=== PATIENT | male | born 1965 | race Caucasian/White ===

== ENCOUNTER → 2020-05-21 14:46 | Outpatient (CLI) | payer OTHER, SELFPAY ==
--- NOTE | ~2020-05-21 | XR_ITS ---
EXAMINATION: XR knee LT 3V DATE: 05/21/2020 15:22 INDICATION: Unilateral primary osteoarthritis, left knee. TECHNIQUE: 4 views of left knee were obtained. COMPARISON: Ultrasound 05/05/2013 FINDINGS: Bone alignment is normal. No fracture. There is severe osteoarthritis of medial compartment and moderate osteoarthritis of lateral and patellofemoral compartments. There is a small knee joint effusion. There is a 7.7 cm calcified mass posterior to the knee. IMPRESSION: 1. Severe left knee osteoarthritis. 2. Small left knee joint effusion. 3. 7.7 cm calcified mass posterior to the knee, which may be a loose body in a Villalpando's cyst. Reviewed, dictated and finalized at location A.
--- NOTE | ~2020-05-21 | XR_ITS ---
EXAMINATION: HAND-RAMONA ARTHRITIS 3+VIEWS DATE: 05/21/2020 15:23 INDICATION: Unspecified osteoarthritis at the bilateral hands with pain at the bilateral first metaca rpals. TECHNIQUE: Posteroanterior, lateral, and oblique views of the left and of the right hands as well as a ballcatchers view of both hands were obtained. COMPARISON: None. FINDINGS: Alignment is normal at both hands. Likely chronic tiny avulsion fracture fragment at the plantar/radi al base of the right third proximal phalanx. No acute fracture. Polyarticular osteoarthritis of both hands, severe at the left first metacarpal metacarpal joint, moderate severity at the right first car pometacarpal joint and mild at multiple bilateral metacarpophalangeal and interphalangeal joints. IMPRESSION: 1. 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 Reviewed, dictated and finalized at location B.
== END ==
PROVIDERS: PCP Family Medicine; Visit Provider Family Medicine
DX: M17.12 Unilateral primary osteoarthritis, left knee (principal); M25.462 Effusion, left knee; M25.862 Other specified joint disorders, left knee; M19.042 Primary osteoarthritis, left hand; M19.041 Primary osteoarthritis, right hand
CPT/HCPCS: 73130; 73562

== ENCOUNTER → 2021-12-05 15:01 | Outpatient (CLI) | payer OTHER, SELFPAY ==
--- NOTE | ~2021-12-05 | XR_ITS ---
XR lumbar spine 2-3V DATE: 12/05/2021 15:18 INDICATION: Back pain, radiculopathy TECHNIQUE: AP, lateral, coned lateral lumbosacral views COMPARISON: None FINDINGS: There is mild levoscoliosis of the lumbar spine. Moderate degenerative disc disease throughout the lumbar interspaces and moderately severe degenerati ve disc disease at L5-S1. No fracture or bone destruction. The lumbar pedicles are intact. The sacroiliac joints are normal. IMPRESSION: Multilevel degenerative disc disease Reviewed, dictated and finalized at location A.
== END ==
PROVIDERS: PCP Family Medicine; Visit Provider Physician Assistant
DX: M47.27 Other spondylosis with radiculopathy, lumbosacral region (principal)
CPT/HCPCS: 72100

== ENCOUNTER → 2022-01-06 16:16 | Outpatient (CLI) | payer OTHER, SELFPAY ==
--- NOTE | ~2022-01-06 | MR_ITS ---
EXAMINATION: MR lumbar spine wo con DATE: 01/06/2022 16:44 INDICATION: Radiculopathy, lumbar spine. TECHNIQUE: Magnetic resonance imaging (MRI) of the lumbar spine was performed without intravenous con trast. Sequences included sagittal T2-weighted FSE, sagittal T2-weighted FS FSE, sagittal T1-weighted FSE, and axial T2-weighted FSE. COMPARISON: Lumbar spine radiographs 12/05/2021 FINDINGS: There is 5 degrees levocurvature of lumbar spine. There are Schmorl's nodes at all levels. There is mild chronic anterior wedging of T12-L2 vertebral bodies. There is mildly decreased disc hei ght from L1-L2 through L4-L5 and severely decreased disc at L5-S1 with endplate remodeling. The dista l spinal cord signal intensity is normal. The conus medullaris is at L1. The following disc levels ar e specifically discussed: L1-L2: The disc is bulging. There is mild right and moderate left facet joint osteoarthritis. There i s mild bilateral neural foraminal stenosis. There is mild central canal stenosis. L2-L3: The disc is bulging. There is no facet joint osteoarthritis. There is mild bilateral neural fo raminal stenosis. There is mild central canal stenosis. L3-L4: The disc is bulging. There is mild bilateral facet joint osteoarthritis. There is mild bilater al neural foraminal stenosis. There is mild central canal stenosis. L4-L5: The disc is bulging. There is moderate bilateral facet joint osteoarthritis. There is mild rig ht and moderate left neural foraminal stenosis. There is mild central canal stenosis. L5-S1: The disc is bulging and has an annular fissure. There is severe bilateral facet joint osteoart hritis. There is moderate bilateral neural foraminal stenosis. There is mild central canal stenosis. IMPRESSION: 1. Severe lower lumbar spondylosis. Reviewed, dictated and finalized at location A.
== END ==
PROVIDERS: PCP Family Medicine; Visit Provider Physician Assistant
DX: M54.16 Radiculopathy, lumbar region (principal); M43.06 Spondylolysis, lumbar region
CPT/HCPCS: 72148